=== PATIENT | male | born 1945 | race Caucasian/White ===

== ENCOUNTER 2018-02-11 17:01 | Emergency (ER) | payer MEDICARE, BC ==
[~2018-02-11 17:01] MED LIST: ISOVUE-370 76%-LOCM 1 ML ONE
[2018-02-11 18:04] LABS: #Basophils 0.1 thou/uL (0.0-0.2); #Eosinphils 0.1 thou/uL (0.0-0.7); #Lymphocytes 1.6 thou/uL (1.20-3.40); #Monocytes 0.5 thou/uL (0.11-0.59); #Neutrophils 5.6 thou/uL (1.40-6.50); %Eosinophils 0.7 % (0.0-10.0); %Lymphocytes 20.6 % (21.0-51.0); %Monocytes 6.5 % (0.0-10.0); %Neutrophils 71.3 % (42.0-75.0); Hemoglobin 15.2 g/dL (14.0-18.0); Mean Corpuscular HGB CONC 33.3 g/dL (32.0-36.0); Mean Corpuscular Hemoglobin 31.6 pg (27.0-31.0); Mean Corpuscular Volume 94.9 fL (78.0-98.0); Platelet Count 258 thou/uL (130-400); RBC Distribution Width 12.1 % (11.5-14.5); Red Blood Cell (RBC) Count 4.79 mill/uL (4.70-6.10); White Blood Cell (WBC) Count 7.9 thou/uL (4.8-10.8)
[2018-02-11] MEDS ORDERED: Ondansetron HCl/PF 4 MG/2 ML Vial ONE (18:11)
[2018-02-11] MEDS ORDERED: Morphine 4 MG/ML VIAL ONE (18:25)
[2018-02-11 18:27] LABS: ALT (SGPT) 15 U/L (8-55); AST (SGOT) 23 U/L (5-34); Albumin 4.8 g/dL (3.4-4.8); Alkaline Phosphatase 76 U/L (40-150); Anion Gap 12 mmol/L (10-20); BUN (Urea Nitrogen) 21 mg/dL (8.4-25.7); Bilirubin, Total 0.8 mg/dL (0.2-1.2); Calc. Creatinine Clearance 0 mL/min (70-130); Calcium 9.7 mg/dL (7.8-10.44); Carbon Dioxide 26 mmol/L (23-31); Chloride 103 mmol/L (98-107); Estimated GFR-MDRD 44; Globulin 3.3 g/dL (2.4-3.5); Glucose 108 mg/dL (80-115); Lipase 30 U/L (8-78); Potassium 3.7 mmol/L (3.5-5.1); Protein, Total 8.1 g/dL (5.8-8.1); Sodium 137 mmol/L (136-145)
[2018-02-11 21:46] LABS: Bilirubin Negative (Negative); Blood, Urine Large (Negative); Clarity TURBID (Clear); Glucose, Urine (Dipstick) Negative (Negative); Leukocyte Small (Negative); Nitrite Negative (Negative); Protein, Urine (Dipstick) 30 mg/dL (Neg-Trace); Specific Gravity, Urine 1.037 (1.002-1.036); Urobilinogen 0.2 mg/dL (0.2-1.0); pH, Urine 5.5 (5.0-9.0)
[2018-02-11 21:48] LABS: Bacteria/HPF None Seen HPF (None Seen); Hyaline Casts/LPF 4-6 HYALINE CAST LPF (0-3 Hyaline); Pathc Cast-AUWi Flag 0.69 (0-2.49); Squamous Epithelial None Seen HPF (0-3); WBC/HPF 0-3 HPF (0-3)
[2018-02-11 21:51] LABS: Crystals/HPF 3+ CA OXALATE HPF (Negative); Yeast-All Forms None Seen HPF (None Seen)
--- NOTE | 2018-02-11 21:52 | CT ---
CT ABDOMEN WITH CONTRAST CT PELVIS WITH CONTRAST: DATE: 02/11/18 at 8:24 p.m. HISTORY: 72-year-old male with acute left upper quadrant abdominal pain. COMPARISON: None. TECHNIQUE: IV injection of iodinated contrast media: Isovue Oral contrast media: Administered FINDINGS: There is moderate dilation of the left renal calyces. There is small to moderate amount of fluid thro ughout the anterior aspect of the left perirenal space, which could represent extravasated urine due to pyelocaliceal blowout. There is mildly delayed left nephrogram, with delayed enhancement of the le ft medullary pyramids compared to those of the right kidney. All of these findings are unrelated to a large 8.5 x 8 x 7 cm left renal upper pole cysts with exophytic component and associated distortion of the left renal parenchyma. Because of the surrounding free fluid in the left perirenal space that tracts along the path of the left ureter, and because of paucity of visceral fat, it is difficult to visualize the left ureter with certainty. There is a 4 x 3 x 5 mm focal small calcification at the le ft pelvic inlet at the mid sacral level, which may represent a calculus lodged in the distal ureter. There is no calculus at the UVJ or within the urinary bladder. The stomach is distended with oral contrast material. There is no small bowel dilation. The right kid panfilo, abdominal aorta, adrenals, pancreas, spleen, and liver, demonstrate no major pathology. No ascit es identified. IMPRESSION: 1. Evidence for left obstructive uropathy: Moderate left hydronephrosis and fluid in the left pe rirenal space which may represent extravasated urine. 2. This is probably caused by what is suspected to be a 5 mm calculus in the left distal ureter. CARLA Flanagan POS: [facility]
== END 2018-02-11 22:39 | disposition home or self-care (01) ==
LOC: ERS 17:01
DX: N13.2 Hydronephrosis with renal and ureteral calculous obstruction (principal)
CPT/HCPCS: 36415; 74177; 80053; 81003; 81015; 83690; 85025; 93005; 94760; 96374; 96375; J2270; J2405

== ENCOUNTER 2018-03-23 08:00 | Day surgery (SDC) | payer MEDICARE, BC ==
[2018-03-22 16:19] VITALS: BMI 21.7
[2018-03-23] MEDS ORDERED: CEFAZOLIN 2 GM/50 ML BAG ONE (08:32)
--- NOTE | 2018-03-23 09:49 | RAD ---
KUB: 03/23/2018 PROVIDED CLINICAL HISTORY: Preop. COMPARISON: 03/21/2018 FINDINGS: Irregular radiodensity overlying the left hemipelvis is again seen and likely reflects a distal left ureteral calculus. No additional radiographically apparent urinary tract calculi. Moderate colonic fecal retention. The abdominal bowel gas pattern is nonspecific. The osseous structures demonstrate no acute findings. IMPRESSION: Left distal ureteral calculus is suspected. POS: [facility]
[2018-03-23] MEDS ORDERED: Iothalamate Meglumine 60% 50 ML VIAL FS ONE (10:41)
[2018-03-23] MEDS ORDERED: Fentanyl 100 MCG/2 ML VIAL ONE (10:49)
[2018-03-23] MEDS ORDERED: Furosemide 20 MG/2 ML VIAL ONE (12:07)
--- NOTE | 2018-03-23 14:15 | OP ---
DATE OF PROCEDURE: 03/23/2018 PREOPERATIVE DIAGNOSIS: Distal left ureteral stone. POSTOPERATIVE DIAGNOSIS: Distal left ureteral stone. PROCEDURE PERFORMED: Left ESWL, cystoscopy, left stent SURGEON: Dr. Armin Orellana ANESTHETIC: General. ESTIMATED BLOOD LOSS: Not recorded. FINDINGS: There is a 5-6 mm distal left ureteral stone that was fragmented with 3500 shocks at maxim um KV level of 6. The first look 1000 were given posteriorly, the next 2500 from the anterior positi on. It did appear to fragment in a number of pieces, but the pieces all congregated in the same chas on. Because he has had this stone for a couple of months a stent was placed. There does appear also that he had some forniceal extravasation. He was given Lasix after 3000 shocks for the last 500, I do not know if it is related to that or if it is something that has been of a chronic problem with tunde howard having the stone, but this will be managed with a stent. OPERATIVE TECHNIQUE: After obtaining written and verbal consent from the patient after receiving IV antibiotics, he was taken to the operating suite. He was placed in the supine position on the [facility] ent table. PlexiPulses were placed on his lower extremities and turned on. He was given a general a nesthetic, oral obturator intubation. The stone was easily visualized and placed in treatment focal point. We initially treated posteriorly treated for about 1000 shocks. It did not appear to be frag menting to well, so we switched to an anterior position and we treated at that position for a total o f 2500 shocks, we had a total of 3500 shocks given. Fluoroscopy was used intermittently. The stone did appear to be fragmenting over the last 2500 shocks. Because he had the stone for a couple of mon ths and because he had a number of fragments still in the same general area. I went ahead and procee ded on with a cystoscopy and a stent. He was placed in dorsal lithotomy position, sterilely prepped and draped. Cystoscopy was performed with a 22-Kazakh sheath. This was well lubricated and passed u nder direct vision through the male urethra into the urinary bladder with aid of a 30-degree lens, vi james camera and monitor. There was a little bit of blood in the bladder that was drained. The bladde r was examined with both a 30 and the 70 degree lens. A 0.038 guidewire was advanced up the left ure teral orifice. It went up a couple of centimeters and stopped. A Pollack catheter was placed up to this region. We injected some contrast which showed a stone fragment in this region with some stone fragments proximal to it and a hydronephrotic ureter proximal to that. We fed an angle tip Glidewire up past this point and then we were able to get the open-ended catheter up into the renal pelvis. W e then filled this area out, noting that there was some extravasation of contrast. Also has hydronep hrosis of the proximal ureter, renal pelvis and caliceal system. We replaced the guidewire, removed the open-ended catheter and then passed a 6 x 26 Polaris double-J stent over the guidewire, placing i t in place with aid of a pusher so its proximal end coiled in the renal pelvis and its distal end coi led in the bladder when the wire was removed. The bladder was drained, the instruments were removed. The string was left attached to the distal end of the stent coming out of the urethral meatus. The patient was taken out of the dorsal lithotomy position, awakened, extubated, and taken by stretcher to the recovery room.
== END 2018-03-23 15:30 | disposition home or self-care (01) ==
LOC: SDC 08:00
PROVIDERS: ATTEND Urology
PROC: 0TF7XZZ Fragmentation in Left Ureter, External Approach (ICD-10-PCS; principal; 2018-03-23)
PROC: 0T778DZ Dilation of Left Ureter with Intraluminal Device, Via Natural or Artificial Opening Endoscopic (ICD-10-PCS; 2018-03-23)
DX: N13.2 Hydronephrosis with renal and ureteral calculous obstruction (principal); I10 Essential (primary) hypertension; F41.9 Anxiety disorder, unspecified; Z79.899 Other long term (current) drug therapy
CPT/HCPCS: 74018; C1758; C1769; J1940; J3010; Q9961

== ENCOUNTER 2018-07-28 04:25 | Emergency (ER) | payer MEDICARE, BC ==
[2018-07-28] MEDS ORDERED: Aspirin Chewable 81 MG TAB ONE (04:39)
[2018-07-28 05:01] LABS: #Basophils 0.1 thou/uL (0.0-0.2); #Eosinphils 0.3 thou/uL (0.0-0.7); #Lymphocytes 1.7 thou/uL (1.20-3.40); #Monocytes 0.4 thou/uL (0.11-0.59); #Neutrophils 2.4 thou/uL (1.40-6.50); %Basophils 1.3 % (0.0-1.0); %Eosinophils 5.1 % (0.0-10.0); %Lymphocytes 35.3 % (21.0-51.0); %Monocytes 8.7 % (0.0-10.0); %Neutrophils 49.5 % (42.0-75.0); Hemoglobin 14.5 g/dL (14.0-18.0); Mean Corpuscular Hemoglobin 31.2 pg (27.0-31.0); Mean Corpuscular Volume 94.3 fL (78.0-98.0); Mean Platelet Volume 7.9 fL (7.4-10.4); Platelet Count 214 thou/uL (130-400); RBC Distribution Width 12.3 % (11.5-14.5); Red Blood Cell (RBC) Count 4.64 mill/uL (4.70-6.10); White Blood Cell (WBC) Count 4.9 thou/uL (4.8-10.8)
[2018-07-28 05:24] LABS: ALT (SGPT) 18 U/L (8-55); AST (SGOT) 24 U/L (5-34); Albumin 4.3 g/dL (3.4-4.8); Alkaline Phosphatase 95 U/L (40-150); Anion Gap 13 mmol/L (10-20); BUN (Urea Nitrogen) 21 mg/dL (8.4-25.7); Bilirubin, Total 0.4 mg/dL (0.2-1.2); CK (CPK) 107 U/L (30-200); Calc. Creatinine Clearance 0 mL/min (70-130); Calcium 9.7 mg/dL (7.8-10.44); Carbon Dioxide 28 mmol/L (23-31); Chloride 105 mmol/L (98-107); Estimated GFR-MDRD 55; Globulin 2.7 g/dL (2.4-3.5); Glucose 101 mg/dL (83-110); Potassium 3.6 mmol/L (3.5-5.1); Sodium 142 mmol/L (136-145)
--- NOTE | 2018-07-28 08:09 | RAD ---
PORTABLE CHEST 1 VIEW: DATE: 07/28/2018. TIME: 4:45 a.m. HISTORY: Chest pain. FINDINGS: The heart size is normal. The aorta is tortuous. The lungs are expanded without focal areas of cons olidation, pneumothoraces, or pleural effusions. IMPRESSION: No radiographic evidence of acute cardiopulmonary process. POS: [facility]
--- NOTE | 2018-07-30 17:07 | EKG ---
Test Reason : Blood Pressure : / mmHG Vent. Rate : 060 BPM Atrial Rate : 060 BPM P-R Int : 166 ms QRS Dur : 092 ms QT Int : 428 ms P-R-T Axes : 055 040 060 degrees QTc Int : 428 ms Normal sinus rhythm Normal ECG Confirmed by MAYO HOFF ([id number]), acquisition editor LARISSA MORAN ([id number]) on 07/30/2018 5:06:32 PM Referred By: Confirmed By:MAYO HOFF
== END 2018-07-28 06:56 | disposition home or self-care (01) ==
LOC: ERS 04:25
DX: R07.9 Chest pain, unspecified (principal); I10 Essential (primary) hypertension; F41.9 Anxiety disorder, unspecified; F32.9 Major depressive disorder, single episode, unspecified; Z79.899 Other long term (current) drug therapy
CPT/HCPCS: 71045; 80053; 82550; 84484; 85025; 93005

== ENCOUNTER 2020-10-25 00:56 | Observation (INO) | payer MEDICARE ==
[2020-10-25 02:06] LABS: #Basophils 0.1 thou/uL (0.0-0.2); #Eosinphils 0.3 thou/uL (0.0-0.7); #Lymphocytes 1.7 thou/uL (1.20-3.40); #Monocytes 0.7 thou/uL (0.11-0.59); #Neutrophils 3.4 thou/uL (1.40-6.50); %Basophils 1.2 % (0.0-1.0); %Lymphocytes 27.4 % (21.0-51.0); %Monocytes 10.5 % (0.0-10.0); %Neutrophils 55.9 % (42.0-75.0); Hemoglobin 14.2 g/dL (14.0-18.0); Mean Corpuscular HGB CONC 34.7 g/dL (32.0-36.0); Mean Corpuscular Hemoglobin 32.9 pg (27.0-31.0); Mean Corpuscular Volume 94.8 fL (78.0-98.0); Mean Platelet Volume 6.7 fL (7.4-10.4); Platelet Count 209 thou/uL (130-400); Red Blood Cell (RBC) Count 4.33 mill/uL (4.70-6.10); White Blood Cell (WBC) Count 6.1 thou/uL (4.8-10.8)
[2020-10-25 02:20] LABS: ALT (SGPT) 19 U/L (8-55); AST (SGOT) 23 U/L (5-34); Albumin 3.7 g/dL (3.4-4.8); Alkaline Phosphatase 115 U/L (40-110); Anion Gap 14 mmol/L (10-20); BUN (Urea Nitrogen) 22 mg/dL (8.4-25.7); Bilirubin, Total 0.3 mg/dL (0.2-1.2); Calc. Creatinine Clearance 0 mL/min (70-130); Calcium 8.8 mg/dL (7.8-10.44); Carbon Dioxide 25 mmol/L (23-31); Chloride 105 mmol/L (98-107); Glucose 110 mg/dL (83-110); Protein, Total 6.7 g/dL (5.8-8.1); Sodium 140 mmol/L (136-145)
[2020-10-25 05:45] LABS: Hemoglobin A1c 4.6 % (4.0-6.0)
[2020-10-25 05:50] LABS: Troponin I Less than 0.010 ng/mL (< 0.028)
[2020-10-25 06:37] VITALS: BMI 23.2
[2020-10-25] MEDS ORDERED: Calcium Polycarbophil 625 MG TAB PO SCH ×2 (09:00→21:00)
[2020-10-25] MEDS ORDERED: Enoxaparin Sodium 40 MG/0.4 ML SYRINGE SC SCH (09:00)
[2020-10-25] MEDS ORDERED: Non-Formulary Item 1 EACH (Levetiracetam [Keppra] 750 MG Tablet) PO SCH (09:00)
[2020-10-25] MEDS ORDERED: Metamucil PACK PO SCH ×2 (09:00→21:00)
[2020-10-25] MEDS ORDERED: Finasteride 5 MG TAB PO SCH (09:00)
[2020-10-25] MEDS ORDERED: levETIRAcetam 500 MG TAB PO SCH (09:00)
[2020-10-25] MEDS ORDERED: Non-Formulary Item 1 EACH (Vitamin B Complex [B Complex] 1 TABLET Tablet) PO SCH (09:00)
[2020-10-25] MEDS ORDERED: Stress 600 With Zinc 1 TAB PO SCH (09:00)
[2020-10-25] MEDS ORDERED: Aspirin 81 mg Enteric Coated Tablet PO SCH (09:00)
[2020-10-25] MEDS ORDERED: Aspirin Chewable 81 MG TAB PO SCH (09:00)
[2020-10-25] MEDS ORDERED: Metoprolol Tartrate 25 MG TAB PO SCH (09:00)
[2020-10-25] MEDS ORDERED: PSYLLIUM HUSK 660 GM PO SCH (09:00)
[2020-10-25 09:39] LABS: Troponin I Less than 0.010 ng/mL (< 0.028)
[2020-10-25 12:36] VITALS: BP 137/67; TEMP 98.1
[2020-10-25] MEDS ORDERED: Atorvastatin Calcium 40 MG TAB PO SCH (21:00)
== END 2020-10-25 14:15 | disposition home or self-care (01) ==
LOC: ERS 00:56 → 2SW 03:13
PROVIDERS: ADMIT Family Medicine; ATTEND Family Medicine
DX: R55 Syncope and collapse (principal); I35.0 Nonrheumatic aortic (valve) stenosis; I10 Essential (primary) hypertension; I48.0 Paroxysmal atrial fibrillation; G40.909 Epilepsy, unspecified, not intractable, without status epilepticus; Z79.82 Long term (current) use of aspirin; Z79.899 Other long term (current) drug therapy; Z95.2 Presence of prosthetic heart valve
CPT/HCPCS: 36415; 70450; 71045; 80053; 83036; 84443; 84484; 85025; 93005; 96372; G0378; J1650